=== PATIENT | female | born 1965 | race Two or more races ===

== ENCOUNTER → 2021-01-07 | Outpatient (CLI) | payer OTHER ==
--- NOTE | 2021-01-07 10:09 | RAD ---
EXAM: Right shoulder, 2 views. HISTORY: Pain and rotator cuff. Disability determination. COMPARISON: None. FINDINGS: 2 views of the right shoulder obtained. There has been suspected distal clavicular resectio n. There is a small associated ossicle adjacent to the distal clavicle on a single projection. There is no fracture, dislocation or subluxation. IMPRESSION: No acute osseous finding. Electronically signed by: Annette Moore MD (01/07/2021 10:07 AM) [id number]
--- NOTE | 2021-01-07 10:10 | RAD ---
EXAM: Lumbar spine, 2 views. HISTORY: Pain. Disability determination. COMPARISON: None. FINDINGS: 2 views of the lumbar spine are obtained. There is minimal retrolisthesis of L5 on S1. The vertebral bodies are normal in height and the disc spaces are preserved. There are incidental cholecy stectomy clips. IMPRESSION: Minimal retrolisthesis of L5 on S1. No acute osseous finding. Electronically signed by: Annette Moore MD (01/07/2021 10:08 AM) [id number]
== END ==
LOC: RAD 09:21
PROVIDERS: ATTEND Family Medicine
DX: M43.17 Spondylolisthesis, lumbosacral region (principal); M25.511 Pain in right shoulder
CPT/HCPCS: 72100; 73030

== ENCOUNTER → 2021-09-02 | Day surgery (SDC) | payer MEDICAID ==
[~2021-09-02] VITALS: Ht 157.5 cm; Wt 60.4 kg
[~2021-09-02] MED LIST: CHOL400T14 PO; HYDR-2761 PO; IV RINGERS,LACTATED 1000ML 1,000 ML IV SCH; LIDOCAINE 2% PF 5 ML VIAL. ONE; MULT-246 PO; PROPOFOL 10 MG/ML (20ML) VIAL. IV ONE
[2021-09-02 08:32] VITALS: BP 135/78
[2021-09-02 09:55] VITALS: BP 118/60
== END | disposition home or self-care (01) ==
LOC: ENDOS 07:49
PROVIDERS: ATTEND Internal Medicine Gastroenterology
DX: Z12.11 Encounter for screening for malignant neoplasm of colon (principal); K64.0 First degree hemorrhoids; K63.5 Polyp of colon; K21.00 Gastro-esophageal reflux disease with esophagitis, without bleeding; K44.9 Diaphragmatic hernia without obstruction or gangrene; K63.89 Other specified diseases of intestine; K31.89 Other diseases of stomach and duodenum; M19.90 Unspecified osteoarthritis, unspecified site; Z83.71 Family history of colonic polyps; Z80.0 Family history of malignant neoplasm of digestive organs; Z90.49 Acquired absence of other specified parts of digestive tract; Z98.890 Other specified postprocedural states; Z79.899 Other long term (current) drug therapy
CPT/HCPCS: 43239; 45380; J2704; 88305; 88342